=== PATIENT | female | born 1980 | race Caucasian/White ===

== ENCOUNTER 2021-01-11 23:09 | Emergency (ER) | payer OTHER ==
[~2021-01-11] VITALS: Ht 162.6 cm; Wt 60.8 kg
[2021-01-11 23:22] VITALS: BP 149/98
--- NOTE | 2021-01-11 23:26 | NUR ---
PT SENT TO LOBBY
--- NOTE | 2021-01-12 01:01 | NUR ---
SEEN AND EXAMINED BY BRANDI
[2021-01-12] MEDS ORDERED: CEPH-588 PO (01:10)
[2021-01-12] MEDS ORDERED: SULF-59 PO (01:12)
[2021-01-12 01:30] VITALS: BP 121/89
--- NOTE | 2021-01-12 01:43 | NUR ---
Patient discharged with v/s stable. Written and verbal after care instructions given and explained. Patient alert, oriented and verbalized understanding of instructions. Ambulatory with steady gait. All questions addressed prior to discharge. ID band removed. Patient advised to follow up with PMD. Rx of KEFLEX, BACTRIM given. Patient educated on indication of medication including possible reaction and side effects. Opportunity to ask questions provided and answered.
== END 2021-01-12 01:43 | disposition home or self-care (01) ==
LOC: MED 23:09
DX: L03.115 Cellulitis of right lower limb (principal); Z79.899 Other long term (current) drug therapy
CPT/HCPCS: 99283